=== PATIENT | female | born 1960 | race Caucasian/White ===

== ENCOUNTER → 2018-02-03 | Outpatient (CLI) | payer BC ==
--- NOTE | 2018-02-10 14:17 | KCIC ---
Bilateral digital screening mammograms with 3-D tomosynthesis: Reason for examination: Routine screening. Comparison is made to previous studies dated 02/16/2017 and 11/07/2015. Bilateral mammograms in CC and oblique projections were obtained with 2-D imaging and 3-D tomosynthesis imaging on a Siemens Inspiration unit and reviewed on the workstation. Interpretation was made with the benefit of CAD. The skin and nipples show no abnormalities. No abnormal axillary lymph nodes are seen. The breast parenchyma shows scattered fatty and fibroglandular density. (Breast density: Category B.) There appears to be some focally increased parenchymal density in the left breast at approximately the 3:00 B position. Further evaluation with coned compression views and ultrasound is recommended. There are no other new dominant masses, suspicious calcifications or architectural distortion. Impression: Focal increased parenchymal density at approximately the 3:00 B position of the left breast. Recommend further evaluation with coned compression views and ultrasound. BI-RADS Category 0: Incomplete. Needs additional imaging evaluation. "Our facility is accredited by the [employer] Mammography [employer]." This patient's information has been entered into a reminder system for the patient to be notified with the results of her examination and a target date for the next mammogram. Electronically signed by: Maliha Westbrook MD (02/10/2018 2:13 PM) [id number]
== END | disposition home or self-care (01) ==
LOC: KCIC MAMMO 12:26
PROVIDERS: ATTEND Nurse Practitioner Family
DX: Z12.31 Encounter for screening mammogram for malignant neoplasm of breast (principal)
CPT/HCPCS: 77063; 77067

== ENCOUNTER → 2018-02-22 | Outpatient (CLI) | payer BC ==
--- NOTE | 2018-02-22 16:18 | KCIC ---
Left breast diagnostic digital mammograms: Reason for examination: Parenchymal density on screening mammogram. Comparison is made to mammographic exam dated 02/03/2018. Coned compression views were obtained in CC and oblique projections. The parenchymal density does not appear to persists with coned compression and appears to represent superimposed tissues. IMPRESSION: The parenchymal density does not appear to persist with additional cone compression views. Ultrasound to follow. BI-RADS Category 0: Incomplete. Needs additional imaging evaluation. Left breast ultrasound: No cystic or solid nodules or architectural distortions are seen. There is however a hyperechoic lesion consistent with a lipoma at the 3:00 position 2 cm from the nipple measuring 8.7 mm in size. No abnormal appearing lymph nodes are seen in the axilla. IMPRESSION: Small 8.7 mm lipoma at the 3:00 position 2 cm from the nipple. No other focal abnormality seen to correspond to the area of mammographic concern which appears to represent superimposed tissues. Recommend routine mammographic follow-up. BI-RADS Category 2: Benign. "Our facility is accredited by the [employer] Mammography [employer]." This patient's information has been entered into a reminder system for the patient to be notified with the results of her examination and a target date for the next mammogram. Electronically signed by: Maliha Westbrook MD (02/22/2018 4:15 PM) [id number]
== END | disposition home or self-care (01) ==
LOC: KCIC MAMMO 12:42
PROVIDERS: ATTEND Nurse Practitioner Family
DX: N63.21 Unspecified lump in the left breast, upper outer quadrant (principal)
CPT/HCPCS: 76641; 77065